=== PATIENT | female | born 1970 | race Caucasian/White ===

== ENCOUNTER 2025-08-11 22:52 | Emergency (ER) | payer SELFPAY ==
[~2025-08-11] VITALS: Ht 162.6 cm; Wt 82.0 kg
[2025-08-11 22:55] VITALS: O2SAT 98
[2025-08-12 00:35] LABS: BASOPHILS % 0.9 % (0.0-2.0); EOSINOPHILS % 1.8 % (0.0-5.0); HEMATOCRIT. 43.0 % (36.0-48.0); HEMOGLOBIN. 14.6 g/dL (12.0-16.0); LYMPHOCYTES % 49.7 % (20.0-50.0); MEAN PLATELET VOLUME 7.7 fl (7.4-10.4); MONOCYTES % 10.5 % (2.0-8.0); NEUTROPHILS % 37.1 % (40.0-76.0); PLATELET 208 x1000/uL (130-400); RED BLOOD CELL COUNT 4.45 mill/uL (4.2-5.4); RED CELL DISTRIBUTION WIDTH 16.3 % (11.6-14.6)
[2025-08-12 00:49] LABS: CREATININE 0.8 mg/dL (0.6-1.0); UREA NITROGEN BLOOD 5 mg/dL (9-23)
[2025-08-12 00:51] LABS: ASPARTATE AMINOTRANSFERASE 62 IU/L (<34)
[2025-08-12 00:52] LABS: BILIRUBIN DIRECT 0.1 mg/dL (<=3.0); BILIRUBIN TOTAL 0.3 mg/dL (0.1-1.0); PROTEIN TOTAL 8.1 g/dL (6.0-8.3)
[2025-08-12] MEDS: ACETAMINOPHEN 1000MG/100ML 100 ML IV ONE (02:09)
[2025-08-12] MEDS ORDERED: IBUP-1455 MT (06:14)
[2025-08-12] MEDS ORDERED: L10 MT (06:14)
[2025-08-12] MEDS: CHLORDIAZEPOXIDE 25MG CAPSULE PO ONE (06:30)
[2025-08-12 06:31] VITALS: BP 155/115; PULSE 109; RESP 16; TEMP 36.8; O2SAT 98
[2025-08-12] MEDS ORDERED: IOHEXOL-350 100 ML BOTTLE ONE (09:09)
== END 2025-08-12 06:36 | disposition home or self-care (01) ==
LOC: ER 22:52
DX: M54.2 Cervicalgia (principal); F41.9 Anxiety disorder, unspecified
CPT/HCPCS: 99285; 80076; 80048; 80320; 83690; 85025; 36415; 70498; 70450; 72125; 93005; 96365; Q9967; Z7610 ×2; G0480; J0131